=== PATIENT | male | born 1990 | race African-American/Black ===

== ENCOUNTER 2019-10-30 02:34 | Emergency (ER) | payer BC, SELFPAY ==
--- NOTE | ~2019-10-30 | XR_ITS ---
EXAMINATION: [id number] DATE: 10/30/2019 03:08 INDICATION: Left lower rib pain. Fall. TECHNIQUE: A frontal view of the chest and 4 views of the left ribs were obtained. COMPARISON: None. FINDINGS: The chest demonstrates clear lungs without pneumonia, pleural effusion, or pneumothorax. Th e heart size is normal. IMPRESSION: 1. No rib fracture. Reviewed, dictated and finalized at location A. IMPRESSION: 1. No rib fracture.
[2019-10-30 02:34] VITALS: BP 158/92; PULSE 96; RESP 20; TEMP 37; O2SAT 97
--- NOTE | 2019-10-30 02:51 | ED.FALL ---
HPI - Fall General Chief Complaint: Fall Stated Complaint: L rib pain/ fall Time Seen by Provider: 10/30/19 02:37 Source: RN notes reviewed History of Present Illness HPI Narrative: Patient presents emergency department from home for left rib pain. Patient states that prior to arrival he was bending over to pick something up outside on his porch when he struck his left side. He states that he has had pain in his left lateral ribs since that time is worse with deep inspiration. He denies falling or striking his head he denies any other injuries. States he is taking nothing previously for the pain. Denies any abdominal pain nausea or vomiting Related Data Allergies Allergy/AdvReac Type Severity Reaction Status Date / Time No Known Allergies Allergy Verified 10/30/19 02:40 Review of Systems Review of Systems: Narrative: Gen.: Denies fevers or chills Eyes: Denies eye pain or visual change ENT: Denies congestion Respiratory: Denies shortness of breath or cough CV: Denies chest pain or palpitations GI: Denies abdominal pain nausea, emesis or diarrhea Musculoskeletal: See HPI Neuro: Denies numbness, tingling, weakness or focal weakness Skin: Denies rash Except as documented, all other systems reviewed and negative [facility] Past Medical History Medical History (Updated 10/30/19 @ 03:26 by Akhil Espinoza DO) Patient denies significant medical history Social History Social History (Updated 10/30/19 @ 02:52 by Akhil Espinoza DO) Smoking packs per day: 1 Smoking cigarettes per day: 20.0 Exam Narrative: Exam Narrative: APPEARANCE: No acute distress, nontoxic, resting in bed EYES: EOMI HEENT: Normocephalic, atraumatic, TMs clear bilaterally, nares patent RESPIRATORY: No respiratory distress Clear to auscultation bilaterally with no rhonchi wheezing or rales. CARDIOVASCULAR: Regular rate and rhythm without murmurs rubs or gallops. 1 tender palpation over left lateral chest wall and region of ribs 6 through 8, pain increased with deep inspiration and coughing, no overlying erythema or ecchymosis ABDOMINAL: Soft, nontender, nondistended, no rebound or guarding NO TTP in LUQ MUSCULOSKELETAl: Moves all extremities. No clubbing, cyanosis or edema. NEURO: Awake and alert x3 . Following commands, speech normal, no focal deficits SKIN:: Warm, dry. No rashes lesions or abrasions PSYCHIATRIC: Normal affect/mood, Course Course Emergency Course: Discussed with patient results of workup and diagnosis. Discussed need for follow-up with primary care, proper use of medication, and reasons to return to the emergency department. Patient understands and agrees to current treatment plan Vital Signs Vital signs: Vital Signs Temperature 98.6 F 10/30/19 02:34 Pulse Rate 96 10/30/19 02:34 Respiratory Rate 20 10/30/19 02:34 Blood Pressure 158/92 H 10/30/19 02:34 Pulse Oximetry 97 10/30/19 02:34 Temperature 98.6 F 10/30/19 02:34 Pulse Rate 96 10/30/19 02:34 Respiratory Rate 20 10/30/19 02:34 Blood Pressure 158/92 H 10/30/19 02:34 Pulse Oximetry 97 10/30/19 02:34 MDM - Fall Imaging Data Attestation: I personally reviewed and interpreted this imaging study as follows: My impression: Left rib series with chest x-ray read by myself shows no acute process Discharge Plan Discharge Clinical Impression: Contusion of rib on left side Patient Disposition: Home, Self-Care Condition: Stable Instructions: Antibiotic Form, Rib Contusion (ED) Additional Instructions: Return for increasing pain shortness of breath or any other symptoms of concern Prescriptions: New ibuprofen [IBU] 600 mg tablet 600 mg PO Q6H PRN (Reason: pain) Qty: 20 RF: 0 Follow-up/Referrals: Gautam Pérez MD [Physician] - (Follow-up in 1-2 days for further on-call physician treatment and evaluation) UNKNOWN,DOCTOR [Primary Care Provider] - Time of Disposition: 03:27
[2019-10-30] MEDS: KETOROLAC 30 MG/ML VIAL (*BKC) IV PUSH (03:03)
[2019-10-30 03:30] VITALS: BP 148/90; PULSE 89; RESP 18; O2SAT 99
== END 2019-10-30 03:35 | disposition home or self-care (01) ==
PROVIDERS: Emergency Provider Emergency Medicine
DX: S20.212A Contusion of left front wall of thorax, initial encounter (principal); F17.210 Nicotine dependence, cigarettes, uncomplicated; W22.8XXA Striking against or struck by other objects, initial encounter
CPT/HCPCS: 71101; 96374; 99284; J1885

== ENCOUNTER 2021-05-17 14:27 | Emergency (ER) | payer BC, SELFPAY ==
[2021-05-17 16:41] VITALS: BP 148/84; PULSE 98; RESP 96; TEMP 36.2; O2SAT 98
--- NOTE | 2021-05-17 17:25 | PC.NURSE ---
Pt presented with heavy bleeding trailing on the floor from left calf, pt states he has a hx of this issue reoccurring, pt is not symptomatic,no acute distress at this time, dressing changed, redress to stop bleeding, Dr. Rodney rogel and ENIO Fonseca at bedside
--- NOTE | 2021-05-17 17:32 | ED.WOUNDLAC ---
HPI - Wound/Laceration General Chief Complaint: Wound/Laceration <Lissett Ríos PA-C - Last Filed: 05/17/21 18:29> Stated Complaint: vein busted on leg <Lissett Ríos PA-C - Last Filed: 05/17/21 18:29> Time Seen by Provider: 05/17/21 17:10 <Lissett Ríos PA-C - Last Filed: 05/17/21 18:29> Source: patient <Lissett Ríos PA-C - Last Filed: 05/17/21 18:29> Mode of arrival: ambulatory <Lissett Ríos PA-C - Last Filed: 05/17/21 18:29> Limitations: no limitations <Lissett Ríos PA-C - Last Filed: 05/17/21 18:29> History of Present Illness HPI narrative: This is a 30 year old male that presents to the ER for varicose vein bleeding. Reports he had a scab in the area that came off around 1pm. He has had bleeding from the area since. Reports multiple previous similar episodes. Denies fever. <Lissett Ríos PA-C - Last Filed: 05/17/21 18:29> Related Data Allergies/Adverse Reactions: Allergies Allergy/AdvReac Type Severity Reaction Status Date / Time No Known Allergies Allergy Verified 10/30/19 02:40 <Lissett Ríos PA-C - Last Filed: 05/17/21 18:29> Review of Systems Review of Systems: CONSTITUTIONAL: Denies fever SKIN: Reports bleeding varicose vein <Lissett Ríos PA-C - Last Filed: 05/17/21 18:29> All systems reviewed & are unremarkable except as noted in HPI and below <Lissett Ríos PA-C - Last Filed: 05/17/21 18:29> [facility] Past Medical History Medical History: Medical History (Updated 05/17/21 @ 18:24 by Lissett Ríos PA-C) Patient denies significant medical history <Lissett Ríos PA-C - Last Filed: 05/17/21 18:29> Social History Social History: Social History (Updated 04/12/20 @ 02:52 by Akhil Espinoza DO) Smoking packs per day: 1 Smoking cigarettes per day: 20.0 <Lissett Ríos PA-C - Last Filed: 05/17/21 18:29> Exam Narrative: GENERAL: Well-appearing, obese, and in no acute distress. HEAD: Normocephalic, atraumatic. EYES: EOMI. EXTREMITIES: Normal range of motion. No edema. Left lower extremity with varicose SKIN: Warm, dry, no rash. NEURO: No focal deficits. Alert and oriented x3. PSYCH: Normal mood and affect <Lissett Ríos PA-C - Last Filed: 05/17/21 18:29> Course ORDER WORKER/PA Physician Supervision I did not see this patient but the care plan was discussed with me. I agree with the documentation as above <Tommie Stevens MD - Last Filed: 05/17/21 18:55> Vital Signs Vital signs: Vital Signs Temperature 36.2 C L 05/17/21 16:41 Pulse Rate 98 05/17/21 16:41 Respiratory Rate 96 H 05/17/21 16:41 Blood Pressure 148/84 H 05/17/21 16:41 Pulse Oximetry 98 05/17/21 16:41 Temperature 36.2 C L 05/17/21 16:41 Pulse Rate 89 05/17/21 18:47 Respiratory Rate 20 05/17/21 18:47 Blood Pressure 157/106 H 05/17/21 18:47 Pulse Oximetry 97 05/17/21 18:47 <Lissett Ríos PA-C - Last Filed: 05/17/21 18:29> Vital Signs Temperature 36.2 C L 05/17/21 16:41 Pulse Rate 98 05/17/21 16:41 Respiratory Rate 96 H 05/17/21 16:41 Blood Pressure 148/84 H 05/17/21 16:41 Pulse Oximetry 98 05/17/21 16:41 Temperature 36.2 C L 05/17/21 16:41 Pulse Rate 89 05/17/21 18:47 Respiratory Rate 20 05/17/21 18:47 Blood Pressure 157/106 H 05/17/21 18:47 Pulse Oximetry 97 05/17/21 18:47 <Tommie Stevens MD - Last Filed: 05/17/21 18:55> Procedures Laceration Laceration 1: Date: 05/17/21 <ANGELIC Espinosa Last Filed: 05/17/21 18:29> Time: 18:28 <ANGELIC Espinosa Last Filed: 05/17/21 18:29> Site: lower extremity <ANGELIC Espinosa Last Filed: 05/17/21 18:29> Side (If applicable): left <ANGELIC Espinosa Last Filed: 05/17/21 18:29> Local Anesthetic: lidocaine 1% and with epi <ANGELIC Espinosa Last Filed: 05/17/21 18:29> Amount of anesthesia used (mL):
[2021-05-17] MEDS: CELLULOSE OXIDIZED 2 x 14 INCH 1 PKT XX (17:55)
[2021-05-17] MEDS: SILVER NITRATE (*SP) STICK 4 EACH (17:55)
[2021-05-17] MEDS: TETANUS,DIPHTHERIA,AC PERTUSSIS ADULT (0.5 ML) BOOSTRIX IM (18:28)
[2021-05-17 18:47] VITALS: BP 157/106; PULSE 89; RESP 20; O2SAT 97
== END 2021-05-17 18:49 | disposition home or self-care (01) ==
PROVIDERS: Emergency Provider Emergency Medicine; PCP Internal Medicine Gastroenterology
DX: I83.892 Varicose veins of left lower extremity with other complications (principal); F17.210 Nicotine dependence, cigarettes, uncomplicated; Z23 Encounter for immunization
CPT/HCPCS: 12001; 90471; 90715; 99283

== ENCOUNTER 2021-07-18 13:23 | Emergency (ER) | payer BC, SELFPAY ==
--- NOTE | ~2021-07-18 | XR_ITS ---
EXAMINATION: XR chest 1V portable INDICATION: Nausea and vomiting TECHNIQUE: Portable AP chest at 2005 hours COMPARISON: 02/15/2010 FINDINGS: There are patchy interstitial and airspace opacities throughout all lung zones. No pleural effusion or pneumothorax is identified. The cardiac silhouette is upper limits of normal for techniqu e. IMPRESSION: 1. Diffuse lung disease consistent with pneumonia versus pulmonary edema. Reviewed, dictated and finalized at location F. [facility]IST
[2021-07-18 13:37] VITALS: BP 153/85; PULSE 81; RESP 18; TEMP 36.2; O2SAT 95
[2021-07-18 19:18] VITALS: BP 144/92; PULSE 92; RESP 17; O2SAT 97
[2021-07-18 19:39] LABS: Basophils Percent Auto 0.2 % (0.2-1.2); Eosinophils Absolute Auto 0.2 K/mm3 (0-0.3); Eosinophils Percent Auto 1.3 % (0-4.4); Hematocrit 40.4 % (42.0-52.0); Hemoglobin 12.8 g/dL (14.0-18.0); Immature Granulocyte Absolute 0.04 K/mm3 (0.00-0.031); Immature Granulocyte Percent A 0.3 % (0-0.5); Lymphocytes Absolute Auto 2.58 K/mm3 (0.9-3.2); Lymphocytes Percent Auto 21.4 % (18.3-44.2); Mean Corpuscular HGB Conc 31.7 g/dl (32-36); Mean Corpuscular Hemoglobin 27.2 pg (26-34); Mean Corpuscular Volume 85.8 fl (80-100); Mean Platelet Volume 10.2 fl (7.4-10.4); Monocytes Absolute Auto 1.2 K/mm3 (0.1-0.6); Monocytes Percent Auto 10.1 % (2.6-8.5); Neutrophils Percent Auto 66.7 % (45.5-73.1); Platelet Count Result 346 k/mm3 (150-375); Red Blood Count 4.71 M/mm3 (4.6-6.20); White Blood Count 12.1 K/mm3 (4.5-10.0)
[2021-07-18 19:43] LABS: Add Urine Microscopic? YES; Appearance Urine Clear (Clear); Bilirubin Urine Negative (Negative); Blood Urine Negative (Negative); Color Urine Yellow (Yellow); Glucose Urine UA Negative (Negative); Ketones Urine Negative (Negative); Leukocyte Esterase Ur Negative LEU/UL (Negative); Mucus Urine Rare /lpf; Nitrate Urine Negative (Negative); Protein Urine 2+ mg/dL (Negative); RBC Urine 0-2 /hpf (0-2); Specific Grav Ur 1.021 (1.001-1.035); WBC Urine 0-3 /hpf
[2021-07-18 19:48] LABS: Alanine Aminotransferase 18 U/L (4-50); Albumin Level 4.2 g/dL (3.5-5.1); Alkaline Phosphatase 95 U/L (38-126); Anion Gap 8 mmol/L (8-16); Aspartate Amino Transferase 27 U/L (17-59); Bilirubin,Total 0.8 mg/dL (0.2-1.3); Blood Urea Nitrogen 11 mg/dL (9-20); Calcium 8.9 mg/dL (8.4-10.2); Carbon Dioxide 32 mmol/L (22-30); Chloride 96 mmol/L (98-107); Estimated CRCL calculation 226 ml/min; Estimated Glomerular Filt Rate > 60; Glucose 108 mg/dL (65-110); Lipase 19 U/L (23-300); Potassium 3.9 mmol/L (3.4-5.0); Sodium 136 mmol/L (137-145)
[2021-07-18] MEDS: ONDANSETRON INJ 4 MG/2 ML VIAL IV PUSH (20:03)
[2021-07-18] MEDS: SODIUM CHLORIDE 0.9% IV 1,000 ML 999 ML IV CONT (20:03)
--- NOTE | 2021-07-18 20:12 | ED.GENADULT ---
HPI - General Adult General Chief complaint: Nausea/Vomiting/Diarrhea Stated complaint: N/V Time Seen by Provider: 07/18/21 19:00 Source: patient Mode of arrival: ambulatory Limitations: no limitations History of Present Illness HPI narrative: Patient is a 30-year-old male with chief complaint of nausea vomiting over the past 3 days. Patient reports he has intermittent cramping-like sensation in his abdomen but does not have localized or continuous abdominal pain. Patient reports at the time the symptoms began he thought he had food poisoning from eating fried chicken and pizza from the corner store. Patient reports that he does not generally have nausea and vomiting when he eats these foods but vomiting may be connected. Patient denies any diarrhea, fever, chills, present abdominal pain, chest pain, shortness of breath. Patient states that he is not vaccinated against Covid and has made an appointment to get a vaccination so at his primary care's office with his children. Patient denies any chronic medical conditions besides anemia which she is not on any treatments. Patient denies history of any abdominal surgeries or prior abdominal issues. Related Data Allergies Allergy/AdvReac Type Severity Reaction Status Date / Time No Known Allergies Allergy Verified 10/30/19 02:40 Review of Systems Review of Systems: CONSTITUTIONAL: Denies fever, chills, or sweats. EYES: Denies visual changes, redness, or discharge. ENT: Denies rhinorrhea, congestion, sore throat, or otalgia. CARDIOVASCULAR: Denies chest pain, palpitations, or edema. RESPIRATORY: Denies cough or dyspnea. GASTROINTESTINAL: Reports nausea and vomiting denies abdominal pain or diarrhea. GENITOURINARY: Denies dysuria or hematuria. SKIN: Denies rash or itching. MUSCULOSKELETAL: Denies back pain, joint pain, or myalgia. NEUROLOGIC: Denies headache, numbness, dizziness, or weakness. PSYCHIATRIC: Denies anxiety or depression. PMFSH Past Medical History Medical History (Updated 07/18/21 @ 20:45 by Farrukh Teague PA-C) Patient denies significant medical history Social History Social History (Updated 10/30/19 @ 02:52 by Akhil Espinoza DO) Smoking packs per day: 1 Smoking cigarettes per day: 20.0 Exam Narrative: GENERAL: Well-appearing, well-nourished, and in no acute distress. Obese. HEAD: Normocephalic, atraumatic. EYES: PERRLA and EOMI. CHEST: Clear to auscultation. No respiratory distress. No wheezes rales or rhonchi HEART: Regular rate and rhythm. No murmur heard. Normal peripheral pulses. ABDOMEN: Soft, nontender to palpation, normal active bowel sounds. EXTREMITIES: Normal range of motion. No edema. SKIN: Warm, dry, no rash. NEURO: No focal deficits. Alert and oriented x3. PSYCH: Normal mood and affect. Course Vital Signs Vital signs: Vital Signs Temperature 97.1 F L 07/18/21 13:37 Pulse Rate 81 07/18/21 13:37 Respiratory Rate 18 07/18/21 13:37 Blood Pressure 153/85 H 07/18/21 13:37 Pulse Oximetry 95 07/18/21 13:37 Temperature 97.1 F L 07/18/21 13:37 Pulse Rate 92 07/18/21 19:18 Respiratory Rate 17 07/18/21 19:18 Blood Pressure 144/92 H 07/18/21 19:18 Pulse Oximetry 97 07/18/21 19:18 Medical Decision Making [facility] Narrative Medical decision making narrative: Patient does not have abdominal tenderness. There is not signs of acute surgical abdomen in the area of the appendix or signs of diverticulitis. Patient chest x-ray shows diffuse changes consistent with Covid. Patient not hypoxic. Patient not tachypneic. Patient is able to handle p.o. challenge after Zofran administration. Patient will be prescribed Zofran for home. Patient given return to ER instructions and quarantine instructions while his Covid test is pending. Differential Diagnosis Differential Diagnosis: Covid, viral illness, pneumonia, diverticulitis, appendicitis, gastroenteritis Vital Signs Vital Signs: Vital Signs Temperature 97.1 F L 07/18/21 13:
[2021-07-18 21:03] VITALS: BP 145/84; PULSE 90; RESP 17; O2SAT 96
[2021-07-19 14:05] LABS: SARS-CoV-2 RNA PCR Negative
== END 2021-07-18 21:10 | disposition home or self-care (01) ==
PROVIDERS: Physician Assistant; Emergency Provider Emergency Medicine; PCP Internal Medicine Gastroenterology
DX: R11.2 Nausea with vomiting, unspecified (principal); Z20.822 Contact with and (suspected) exposure to COVID-19; F17.210 Nicotine dependence, cigarettes, uncomplicated; Z86.2 Personal history of diseases of the blood and blood-forming organs and certain disorders involving the immune mechanism
CPT/HCPCS: 36415; 71045; 80053; 81001; 83690; 85025; 96361; 96374; 99284; C9803; J2405; J7030; U0003; U0005

== ENCOUNTER 2022-10-03 09:12 | Emergency (ER) | payer BC, SELFPAY ==
[2022-10-03] VITALS (21 sets, daily range): BP systolic 130–142; BP diastolic 72–89; PULSE 63–107; RESP 16–28; TEMP 37.1; O2SAT 97–100
--- NOTE | 2022-10-03 09:15 | ECG_ITS ---
Measurements Intervals Badger Rate: 70 P: 50 WI: 157 QRS: 57 QRSD: 91 T: 53 QT: 379 QTc: 410 Interpretive Statements SINUS RHYTHM BASELINE ARTIFACT- I, II, III, AVR, AVL, V1-V2 NORMAL ECG NO PREVIOUS ECG AVAILABLE FOR COMPARISON Electronically Signed On 10-03-2022 9:43:25 CDT by Shen Miller D.O.
[2022-10-03 10:01] LABS: Basophils Absolute Auto 0.1 K/mm3 (0.0-0.1); Basophils Percent Auto 0.4 % (0.2-1.2); Eosinophils Absolute Auto 0.2 K/mm3 (0-0.3); Eosinophils Percent Auto 1.1 % (0-4.4); Hematocrit 42.5 % (42.0-52.0); Immature Granulocyte Absolute 0.05 K/mm3 (0.00-0.031); Immature Granulocyte Percent A 0.3 % (0-0.5); Lymphocytes Absolute Auto 4.07 K/mm3 (0.9-3.2); Lymphocytes Percent Auto 27.5 % (18.3-44.2); Mean Corpuscular HGB Conc 32.9 g/dl (32-36); Mean Corpuscular Hemoglobin 28.9 pg (26-34); Mean Corpuscular Volume 87.8 fl (80-100); Mean Platelet Volume 10.2 fl (7.4-10.4); Monocytes Absolute Auto 1.6 K/mm3 (0.1-0.6); Monocytes Percent Auto 10.8 % (2.6-8.5); Neutrophils Absolute Auto 8.9 K/mm3 (1.3-6.7); Neutrophils Percent Auto 59.9 % (45.5-73.1); Platelet Count Result 332 k/mm3 (150-375); Red Blood Count 4.84 M/mm3 (4.6-6.20); Red Cell Distribution Width 13.2 % (11.5-14.5); White Blood Count 14.8 K/mm3 (4.5-10.0)
[2022-10-03 10:14] LABS: Alanine Aminotransferase 36 U/L (6-50); Albumin Level 4.5 g/dL (3.5-5.1); Alkaline Phosphatase 67 U/L (38-126); Anion Gap 7 mmol/L (8-16); Aspartate Amino Transferase 32 U/L (17-59); Bilirubin,Total 1.8 mg/dL (0.2-1.3); Blood Urea Nitrogen 12 mg/dL (9-20); Calcium 9.2 mg/dL (8.4-10.2); Carbon Dioxide 27 mmol/L (22-30); Chloride 101 mmol/L (98-107); Estimated CRCL calculation 185 ml/min; Estimated Glomerular Filt Rate > 60; Glucose 106 mg/dL (65-110); Potassium 3.3 mmol/L (3.4-5.0); Sodium 135 mmol/L (137-145)
[2022-10-03 10:27] LABS: Magnesium 1.9 mg/dL (1.6-2.3)
[2022-10-03] MEDS: SODIUM CHLORIDE 0.9% IV 1,000 ML 999 ML IV CONT (10:30)
[2022-10-03] MEDS: POTASSIUM CHLORIDE 20 MEQ PACKET (FOR LIQUID) 40 MEQ PO (10:30)
--- NOTE | 2022-10-03 10:42 | ED.GENADULT ---
HPI - General Adult General Chief complaint: Syncope Stated complaint: passed out last night Time Seen by Provider: 10/03/22 09:50 History of Present Illness HPI narrative: Patient is a 32-year-old male who presents ER with some muscle weakness. This occurred 6 times this morning. Last for about 5 to 10 seconds. He feels weak and tremulous in his arms. Feels like he has very brief. Movements when it occurs. Has not lost consciousness. Something similar happened last night where he was reaching his arms and was having trouble speaking due to weakness as it was very quiet. No slurred speech. No facial droop or paralysis. Reports he has not eaten for 1 week due to stress. Prior to that he been taking a lot of supplements for working out. He reports his urine has been very dark. Related Data Allergies Allergy/AdvReac Type Severity Reaction Status Date / Time No Known Allergies Allergy Verified 10/30/19 02:40 Review of Systems Review of Systems: All systems reviewed & are unremarkable except as noted in HPI and below Constitutional: Constitutional: Denies chills, Denies fatigue and Denies fever(s) Cardiovascular: Cardiovascular: Denies chest pain, Denies rapid heart rate and Denies radiating jaw, neck or arm pain Respiratory: Respiratory: Denies cough and Denies dyspnea Gastrointestinal: Gastrointestinal: Denies abdominal pain, Denies nausea and Denies vomiting Musculoskeletal: Musculoskeletal: Denies arthralgias, Denies joint swelling and Denies muscle cramps Neurologic: Denies syncope, Denies headache(s), Denies focal weakness and Denies numbness Comments: Tremor PMFSH Past Medical History Medical History (Updated 10/03/22 @ 12:32 by Sarkis Leonard MD) Patient denies significant medical history Surgical History Surgical History (Updated 10/03/22 @ 10:44 by Sarkis Leonard MD) No history of previous surgery Social History Social History (Updated 10/30/19 @ 02:52 by Akhil Espinoza DO) Smoking packs per day: 1 Smoking cigarettes per day: 20.0 Exam Narrative: GENERAL: Well-appearing, well-nourished, and in no acute distress. HEAD: Normocephalic, atraumatic. EYES: PERRL and EOMI. ENT: Mucous membranes moist. NECK: Supple. CHEST: Clear to auscultation. No respiratory distress. HEART: Regular rate and rhythm. Normal peripheral pulses. ABDOMEN: Soft, nontender, nondistended. EXTREMITIES: Normal range of motion. No edema. NEURO: Alert and oriented x3. PSYCH: Normal mood and affect. Course Course Emergency Course: No abnormal movements during my evaluation in the ER. Patient hydrated and given some oral potassium. May be having some muscle spasms cardiology related to electrolyte disturbance. Recommend follow-up with PCP. Vital Signs Vital signs: Vital Signs Temperature 98.8 F 10/03/22 09:15 Pulse Rate 82 10/03/22 09:15 Respiratory Rate 16 10/03/22 09:15 Blood Pressure 142/80 H 10/03/22 09:15 Pulse Oximetry 97 10/03/22 09:15 Oxygen Delivery Room Air 10/03/22 09:15 Temperature 98.8 F 10/03/22 09:15 Pulse Rate 69 10/03/22 12:16 Respiratory Rate 20 10/03/22 12:16 Blood Pressure 135/84 10/03/22 12:16 Pulse Oximetry 99 10/03/22 12:16 Oxygen Delivery Room Air 10/03/22 10:43 Medical Decision Making Vital Signs Vital Signs: Vital Signs Temperature 98.8 F 10/03/22 09:15 Pulse Rate 82 10/03/22 09:15 Respiratory Rate 16 10/03/22 09:15 Blood Pressure 142/80 H 10/03/22 09:15 Pulse Oximetry 97 10/03/22 09:15 Oxygen Delivery Room Air 10/03/22 09:15 Temperature 98.8 F 10/03/22 09:15 Pulse Rate 69 10/03/22 12:16 Respiratory Rate 20 10/03/22 12:16 Blood Pressure 135/84 10/03/22 12:16 Pulse Oximetry 99 10/03/22 12:16 Oxygen Delivery Room Air 10/03/22 10:43 Lab Data 10/03/22 09:48 10/03/22 09:48 Labs: Lab Results 10/03/22 10/03/22 10/03/22 Range/Units
--- NOTE | 2022-10-03 11:10 | PC.NURSE ---
Patient report given to TONYA Kaur. All questions answered and care of patient transferred.
== END 2022-10-03 12:55 | disposition home or self-care (01) ==
PROVIDERS: Emergency Medicine; Emergency Provider Emergency Medicine; PCP Internal Medicine Gastroenterology
DX: R25.2 Cramp and spasm (principal); R25.1 Tremor, unspecified; F17.210 Nicotine dependence, cigarettes, uncomplicated
CPT/HCPCS: 36415; 80053; 83735; 85025; 93005; 96360; 99284; A9270; J7030

== ENCOUNTER 2023-02-21 12:29 | Emergency (ER) | payer BC, SELFPAY ==
--- NOTE | ~2023-02-21 | US_ITS ---
EXAMINATION: US venous doppler [facility] DATE: 02/21/2023 13:36 INDICATION: Lower limb swelling TECHNIQUE: Grayscale ultrasound images without and with compression and Doppler ultrasound images of the bilateral lower extremity veins were obtained. COMPARISON: None. FINDINGS: The visualized portions of right common femoral vein, profunda (deep) femoral vein, femoral vein, pop liteal vein, posterior tibial veins, peroneal veins, gastrocnemius vein and greater saphenous vein ou tflow are patent. The visualized portions of left common femoral vein, profunda femoral vein, femoral vein, popliteal v ein, posterior tibial veins, gastrocnemius vein and greater saphenous vein outflow are patent. 4.4 x 4.0 x 2.2 cm complex hypoechoic fluid collection in the deep subcutaneous tissues at the medial left calf without surrounding hyperemia or internal vascular flow on color Doppler which given the history of recent trauma is most consistent with a posterior metal hematoma. IMPRESSION: 1. No deep venous thrombosis in either lower limb. 2. 4.4 x 4.0 x 2.2 cm complex fluid collection at the medial left calf most likely a posttraumatic he matoma. Reviewed, dictated and finalized at location A. IMPRESSION: 1. No deep venous thrombosis in either lower limb. 2. 4.4 x 4.0 x 2.2 cm complex fluid collection at the medial left calf most lik yuliya a posttraumatic hematoma.
[2023-02-21 12:36] VITALS: BP 123/73; PULSE 99; RESP 16; O2SAT 99
[2023-02-21 12:37] VITALS: BP 136/82; PULSE 86; RESP 19; TEMP 36.7; O2SAT 98
[2023-02-21 13:16] VITALS: BP 142/83; PULSE 83; RESP 19; O2SAT 100
[2023-02-21 13:46] VITALS: BP 118/85; PULSE 76; RESP 21; O2SAT 100
--- NOTE | 2023-02-21 14:31 | ED.EXTPRO ---
HPI - Extremity Problem General Chief complaint: Extremity Problem,Nontraumatic Stated complaint: L calf pain/swelling, rule out DVT? Time Seen by Provider: 02/21/23 12:40 History of Present Illness HPI Narrative: 32-year-old male to the emergency department for evaluation of left leg pain. Patient reports he had a fall off a porch on the and has been having left leg pain. Patient is currently incarcerated. Patient had told nursing that he has a prior history of DVT but is not taking blood thinners. Patient denies any prior history of DVT. Patient states he has never been on blood thinners. Patient denies any chest pain or shortness of breath. Related Data Allergies Allergy/AdvReac Type Severity Reaction Status Date / Time No Known Allergies Allergy Verified 02/21/23 12:39 Review of Systems Review of Systems: All systems reviewed & are unremarkable except as noted in HPI and below PMFSH Past Medical History Medical History (Updated 02/21/23 @ 14:37 by Nomi Lopez MD) Patient denies significant medical history Surgical History Surgical History (Updated 10/03/22 @ 10:44 by Sarkis Leonard MD) No history of previous surgery Social History Social History (Updated 10/30/19 @ 02:52 by Akhil Espinoza DO) Smoking packs per day: 1 Smoking cigarettes per day: 20.0 Exam Narrative: APPEARANCE: Well appearing, no pain, no distress, well-nourished. HEAD: normocephalic, atraumatic. EYES: PERRLA/EOMI, conjunctivae clear. NOSE: Normal no drainage NECK: Supple. No adenopathy, no masses. RESPIRATORY: Airway patent, respirations nonlabored. Clear to auscultation bilaterally, no rales, rhonchi, wheezing. CARDIOVASCULAR: Regular rate and rhythm without murmurs rubs or gallops. ABDOMINAL: Soft, nontender, nondistended, normal bowel sounds MUSCULOSKELETAL: Posterior calf tenderness on the left. Neurovascular intact. Strong DP pulses. Ultrasound was negative for DVT NEURO: Alert. Cranial nerves II through XII intact. Good gait. Good coordination SKIN: Warm, dry. Normal Color PSYCHIATRIC: Normal affect/mood. Course Course Emergency Course: 32-year-old male presented emerged department for evaluation of left leg pain. Ultrasound was negative for DVT but did show a hematoma. Patient has strong arterial pulses and no evidence of DVT. Patient is not taking any blood thinners. Patient was provided an Néstor wrap for comfort. Patient was also encouraged to follow-up with orthopedics. Vital Signs Vital signs: Vital Signs Pulse Rate 99 02/21/23 12:36 Respiratory Rate 16 02/21/23 12:36 Blood Pressure 123/73 02/21/23 12:36 Pulse Oximetry 99 02/21/23 12:36 Temperature 98.0 F 02/21/23 12:37 Pulse Rate 76 02/21/23 13:46 Respiratory Rate 21 H 02/21/23 13:46 Blood Pressure 118/85 02/21/23 13:46 Pulse Oximetry 100 02/21/23 13:46 Oxygen Delivery Room Air 02/21/23 12:37 MDM - Extremity (Nontraumatic) Imaging Data Radiologist's impression: Impressions Venous Doppler Study 02/21/23 13:55 IMPRESSION: 1. No deep venous thrombosis in either lower limb. 2. 4.4 x 4.0 x 2.2 cm complex fluid collection at the medial left calf most likely a posttraumatic hematoma. Discharge Plan Discharge Clinical Impression: Hematoma of left lower extremity Patient Disposition: Home, Self-Care Condition: Stable Instructions: Antibiotic Form, Hematoma (ED) Additional Instructions: Néstor wrap for comfort. Have close follow-up with orthopedics. Prescriptions: No Action ondansetron 4 mg tablet,disintegrating 4 mg PO Q6H PRN (Reason: nausea and vomiting) Qty: 20 0RF potassium chloride 10 mEq tablet extended release 20 meq PO DAILY Qty: 10 0RF Follow-up/Referrals: Robert Brown MD [Physician] - Davy,Karel Nino MD [Primary Care Provider] -
== END 2023-02-21 14:53 ==
PROVIDERS: Emergency Provider Emergency Medicine; PCP Internal Medicine Gastroenterology
DX: S80.12XA Contusion of left lower leg, initial encounter (principal); F17.210 Nicotine dependence, cigarettes, uncomplicated; Z86.718 Personal history of other venous thrombosis and embolism; W13.8XXA Fall from, out of or through other building or structure, initial encounter
CPT/HCPCS: 93970; 99284